=== PATIENT | female | born 1960 | race Caucasian/White ===

== ENCOUNTER 2017-05-01 06:25 | Day surgery (SDC) | payer BC ==
[~2017-05-01] VITALS: Ht 165.1 cm; Wt 84.7 kg
[2017-05-01] MEDS ORDERED: SODIUM CHLORIDE 0.9% 1000ML 1,000 ML IV ONE (06:50)
[2017-05-01] MEDS ORDERED: DICLOFENAC TOP (07:29)
[2017-05-01] MEDS ORDERED: LEVO75TA4 PO (07:29)
[2017-05-01] MEDS ORDERED: LISI-613 PO (07:29)
[2017-05-01] MEDS ORDERED: LOTE5OS OD (07:29)
[2017-05-01] MEDS ORDERED: ALPR-409 PO (07:29)
[2017-05-01] MEDS ORDERED: LEVO50TA4 PO (07:29)
[2017-05-01] MEDS ORDERED: RIZA10TA29 PO (07:29)
[2017-05-01] MEDS ORDERED: LIFI1DRO OP (07:29)
[2017-05-01] MEDS ORDERED: BUPR150T8 PO (07:29)
[2017-05-01] MEDS ORDERED: CITA40TA6 PO (07:29)
[2017-05-01] MEDS ORDERED: RABE20TA27 PO (07:29)
[2017-05-01] MEDS ORDERED: LIDOCAINE HCL 1% 20 ML VIAL ONE (07:32)
[2017-05-01] MEDS ORDERED: PROPOFOL 10 MG/ML 20ML VIAL IV ONE (07:32)
[2017-05-01] MEDS ORDERED: FENTANYL CITRATE PF 50 MCG/1 ML 2ML VIAL ONE (07:32)
[2017-05-01] MEDS ORDERED: GLYCOPYRROLATE 0.2 MG/ML 5 ML VIAL ONE (07:33)
[2017-05-01] MEDS ORDERED: PHENYLEPHRINE HCL 10 MG/ML 1ML VIAL IV ONE (07:33)
== END 2017-05-01 08:31 | disposition home or self-care (01) ==
LOC: ENDO 06:25 → DAH 06:25 → ENDO 08:31
PROVIDERS: ATTEND Internal Medicine Gastroenterology
DX: Z12.11 Encounter for screening for malignant neoplasm of colon (principal); K21.9 Gastro-esophageal reflux disease without esophagitis; E03.9 Hypothyroidism, unspecified; G43.909 Migraine, unspecified, not intractable, without status migrainosus; F32.9 Major depressive disorder, single episode, unspecified; Z90.49 Acquired absence of other specified parts of digestive tract; Z90.710 Acquired absence of both cervix and uterus; Z98.890 Other specified postprocedural states; Z98.0 Intestinal bypass and anastomosis status; Z88.6 Allergy status to analgesic agent
CPT/HCPCS: 45378; A4606; J2370; J2704; J3010; J3490; J7030

== ENCOUNTER 2018-06-13 17:19 | Emergency (ER) | payer BC ==
[~2018-06-13 17:19] MED LIST: ALPR-409 PO; BUPR150T8 PO; CITA40TA6 PO; DICLOFENAC TOP; LEVO50TA4 PO; LEVO75TA4 PO; LIFI1DRO OP; LISI-613 PO; LOTE5OS OD; RABE20TA27 PO; RIZA10TA29 PO
[2018-06-13 17:58] LABS: BASOPHILS % (AUTO) 0.5 % (0.0-5.0); EOSINOPHILS % (AUTO) 1.8 % (0.0-8.0); LYMPHOCYTES % (AUTO) 44.6 % (21.0-51.0); MEAN CORPUSCULAR HEMOGLOBIN 30.6 pg (27.0-33.0); MEAN CORPUSCULAR HGB CONC 33.7 g/dL (32.0-36.0); MEAN CORPUSCULAR VOLUME 90.6 fL (79-99); MONOCYTES % (AUTO) 9.8 % (3.0-13.0); NEUTROPHILS % (AUTO) 43.3 % (40.0-77.0); PLATELET COUNT (AUTO) 349 K/uL (130-400); RED CELL DISTRIBUTION WIDTH 13.3 % (11.0-15.5); WHITE BLOOD COUNT (AUTO) 5.3 K/uL (4.8-10.8)
[2018-06-13 18:20] LABS: ALBUMIN 3.4 g/dL (3.5-5.0); POTASSIUM 4.3 mmol/L (3.5-5.1)
[2018-06-13] MEDS ORDERED: DiphenhydrAMINE HCL 50 MG/ML VIAL ONE (18:26)
[2018-06-13] MEDS ORDERED: SODIUM CHLORIDE 0.9% 1000ML 1,000 ML IV ONE (18:26)
[2018-06-13] MEDS ORDERED: KETOROLAC TROMETHAMINE 30MG/ML ONE (18:27)
[2018-06-13] MEDS ORDERED: METHYLPREDNISOLONE SOD SUCC 125MG/2ML VIAL ONE (18:27)
[2018-06-13 18:30] LABS: BILIRUBIN,TOTAL 0.6 mg/dL (0.2-1.0)
[2018-06-13 18:31] LABS: TOTAL PROTEIN, SERUM 6.9 g/dL (6.0-8.3)
== END 2018-06-13 20:18 | disposition home or self-care (01) ==
LOC: EDH 17:19
DX: G43.109 Migraine with aura, not intractable, without status migrainosus (principal); I10 Essential (primary) hypertension; E78.5 Hyperlipidemia, unspecified; E07.9 Disorder of thyroid, unspecified; Z90.49 Acquired absence of other specified parts of digestive tract; Z90.89 Acquired absence of other organs; Z90.710 Acquired absence of both cervix and uterus; Z88.5 Allergy status to narcotic agent
CPT/HCPCS: 36415; 70450; 80053; 84484; 85025; 93005; 96374; 96375; 99284; J1200; J1885; J2930; J7030